=== PATIENT | male | born 1980 | race Two or more races ===

== ENCOUNTER 2024-09-29 13:47 | Outpatient (CLI) | payer OTHER ==
[~2024-09-29 13:47] MED LIST: CELEBREX50 MG PO; CENTANY AT1 EACH TP; OXYCONTIN10 M1 PO; ULTRACET PO
== END 2024-09-29 13:57 | disposition home or self-care (01) ==
LOC: RAD 13:47
PROVIDERS: ATTEND Orthopaedic Surgery
DX: M25.572 Pain in left ankle and joints of left foot (principal)